=== PATIENT | female | born 1995 | race American Indian/Alaskan Native ===

== ENCOUNTER 2017-03-14 00:16 | Emergency (ER) | payer OTHER ==
[2017-03-14 02:33] LABS: Basophils % (Auto) 0.5 % (0.0-1.8); Eosinophils % (Auto) 5.4 % (0.0-4.3); Hematocrit 32.6 % (30.3-42.9); Hemoglobin 10.5 gm/dl (10.1-14.3); Mean Corpuscular HGB Conc 32 % (30-34); Mean Corpuscular Hemoglobin 27 pg (28-32); Mean Corpuscular Volume 85 fl (79-97); Platelet Count 351 K/mm3 (140-440); Red Blood Count 3.83 M/mm3 (3.65-5.03); Red Cell Distribution Width 17.9 % (13.2-15.2); White Blood Count 8.1 K/mm3 (4.5-11.0)
[2017-03-14 02:51] LABS: Alanine Aminotransferase 10 units/L (7-56); Albumin 3.9 g/dL (3.9-5); Albumin/Globulin Ratio 1.4 %; Alkaline Phosphatase 56 units/L (35-129); Anion Gap 16 mmol/L; BUN/Creatinine Ratio 22; Blood Urea Nitrogen 11 mg/dL (7-17); Calcium 9.2 mg/dL (8.4-10.2); Carbon Dioxide 22 mmol/L (22-30); Chloride 99.6 mmol/L (98-107); Glucose 80 mg/dL (65-100); Lipase 22 units/L (13-60); Sodium 134 mmol/L (137-145); Total Protein 6.6 g/dL (6.3-8.2)
[2017-03-14 08:58] LABS: Bilirubin,Urine NEG (Negative); Blood,Urine LG (Negative); Ketones,Urine 20 mg/dL (Negative); Leukocyte Esterase,Urine NEG (Negative); Mucus,Urine 3+ /HPF; Nitrite,Urine NEG (Negative); Protein,Urine <15 mg/dL mg/dL (Negative)
[2017-03-14 10:59] VITALS: BP 112/70
[2017-03-14] MEDS ORDERED: NORCO 7.5/325 PO ONE (11:33)
[2017-03-14] MEDS ORDERED: TORADOL IM ONE (11:33)
--- NOTE | 2017-03-14 12:18 | Emergency Department Report ---
HPI - General Chief Complaint: Abdominal Pain Time Seen by Provider: 03/14/17 10:04 - HPI HPI: The patient's 21-year-old female presents for evaluation of abdominal pain. The patient reports bilateral lower abdominal pain since last night, 7/10 in severity, crampy in quality, worsened with movement, and associated with vaginal bleeding. She states that she started her typical menstrual period last night. The patient denies fever, chills, night sweats, diarrhea, blood in the stool, dark tarry stool, dysuria, hematuria, flank pain, genital discharge, inability to pass flatus. ED Past Medical Hx - Past Medical History Previous Medical History?: No - Surgical History Past Surgical History?: No - Social History Smoking Status: Never Smoker Substance Use Type: None - Medications Home Medications: Home Medications Medication Instructions Recorded Confirmed Last Taken Type Acetaminophen/Codeine [Tylenol #3] 1 tab PO Q6H PRN #14 tab 03/14/17 Unknown Rx Ibuprofen [Motrin] 800 mg PO Q8HR PRN #15 tablet 03/14/17 Unknown Rx ED Review of Systems ROS: Stated complaint: SEVERE ABD CRAMPING Other details as noted in HPI Constitutional: denies: fever ENT: denies: throat or neck pain Respiratory: denies: cough, shortness of breath Cardiovascular: denies: chest pain Endocrine: denies unexplained weight loss or gain Gastrointestinal: reports abdominal pain, nausea Genitourinary: reports vaginial bleeding denies: dysuria Musculoskeletal: denies: leg swelling Skin: denies: rash Neurological: denies: headache Hematological/Lymphatic: denies: easy bleeding or easy bruising Psych: denies sadness or hopelessness Physical Exam - Physical Exam Vital Signs: Vital Signs 03/14/17 03/14/17 03/14/17 01:16 08:25 08:29 Temperature 98.7 F 98.4 F Pulse Rate 87 64 Respiratory 18 16 20 Rate Blood Pressure 109/64 Blood Pressure 111/75 [Left] O2 Sat by Pulse 98 98 100 Oximetry 03/14/17 10:58 Temperature 98.7 F Pulse Rate 84 Respiratory 16 Rate Blood Pressure Blood Pressure 112/70 [Left] O2 Sat by Pulse 100 Oximetry Physical Exam: General: well-nourished, well-developed, no acute distress Head: Normocephalic, atraumatic Eyes: normal sclera ENT: Mucous membranes are pink and moist Neck: trachea midline, neck supple, No neck stiffness, no cervical adenopathy Respiratory: Breath sounds equal bilaterally, no wheezing, rales, or rhonchi Cardio: S1 and S2 present, no murmurs, rubs, gallops, capillary refill is brisk Abdomen: Normoactive bowel sounds, soft abdomen, LLQ and suprapubic abd pain, no rigidity, no guarding or rebound tenderness Chest WALL/Back: No tenderness to palpation of the chest wall, no CVA tenderness with percussion Musc: No pitting edema Skin: No rash Neuro: no facial drooping, normal speech Psych: Normal affect ED Course Vital Signs 03/14/17 03/14/17 03/14/17 01:16 08:25 08:29 Temperature 98.7 F 98.4 F Pulse Rate 87 64 Respiratory 18 16 20 Rate Blood Pressure 109/64 Blood Pressure 111/75 [Left] O2 Sat by Pulse 98 98 100 Oximetry 03/14/17 10:58 Temperature 98.7 F Pulse Rate 84 Respiratory 16 Rate Blood Pressure Blood Pressure 112/70 [Left] O2 Sat by Pulse 100 Oximetry ED Medical Decision Making - Lab Data Result diagrams: 03/14/17 01:41 03/14/17 01:41 - Medical Decision Making The patient was seen and examined by myself. The patient is placed on a threat monitoring analyst and continuous pulse ox. On initial evaluation, the patient was found to be in no distress. Evaluation orders are placed. The patient is given by mouth pain medicine. Lab results were non-concerning including WBC, hemoglobin, hematocrit, electrolytes, renal function, LFTs, lipase, urinalysis, and negative test. The patient was reevaluated and reported that their symptoms were markedly improved. The patient is stable for discharge with outpatient follow-up. The patient is given follow-up and return instructions. The patient expressed understanding and agreed with the plan. The patient is discharged in stable condition. Critical care attestation.: If time is entered above; I have spent that time in minutes in the direct care of this critically ill patient, excluding procedure time. ED Disposition Clinical Impression: Abdominal pain, acute, periumbilical Disposition: - TO HOME OR SELFCARE Is pt being admited?: No Does the pt Need Aspirin: No Condition: Stable Instructions: Abdominal Pain (ED), Menstruation (ED), Dysmenorrhea (ED), Dysfunctional Uterine Bleeding (ED) Referrals: PRIMARY CAREMD [Primary Care Provider] - 3-5 Days JEFF TONG MD [Staff Physician] - 3-5 Days Time of Disposition: 12:15
== END 2017-03-14 12:28 | disposition home or self-care (01) ==
LOC: ED 00:16
DX: R10.30 Lower abdominal pain, unspecified (principal); N93.9 Abnormal uterine and vaginal bleeding, unspecified
CPT/HCPCS: 36415; 80053; 81001; 81025; 83690; 85025; 96372; 99284; J1885

== ENCOUNTER 2019-03-18 15:35 | Outpatient (CLI) | payer OTHER ==
[2019-03-18 16:26] VITALS: BP 105/66
[2019-03-18] MEDS ORDERED: LACTATED RINGERS 500 ML IV ONE (18:51)
[2019-03-18 19:09] LABS: Bilirubin,Urine NEG (Negative); Blood,Urine NEG (Negative); Color,Urine Amber (Yellow); Mucus,Urine 3+ /HPF
[2019-03-18 19:50] LABS: Basophils % (Auto) 0.5 % (0.0-1.8); Eosinophils # (Auto) 0.5 K/mm3 (0.0-0.4); Eosinophils % (Auto) 5.3 % (0.0-4.3); Hematocrit 32.2 % (30.3-42.9); Hemoglobin 10.8 gm/dl (10.1-14.3); Lymphocytes # (Auto) 1.8 K/mm3 (1.2-5.4); Lymphocytes % (Auto) 19.8 % (13.4-35.0); Mean Corpuscular HGB Conc 34 % (30-34); Mean Corpuscular Volume 94 fl (79-97); Monocytes # (Auto) 0.9 K/mm3 (0.0-0.8); Monocytes % (Auto) 9.4 % (0.0-7.3); Platelet Count 279 K/mm3 (140-440); Red Blood Count 3.42 M/mm3 (3.65-5.03); Red Cell Distribution Width 12.9 % (13.2-15.2)
== END 2019-03-18 20:09 | disposition home or self-care (01) ==
LOC: TRG 15:35
PROVIDERS: ATTEND Obstetrics & Gynecology
DX: O47.03 False labor before 37 completed weeks of gestation, third trimester (principal); Z3A.30 30 weeks gestation of pregnancy
CPT/HCPCS: 36415; 59025; 81001; 85025

== ENCOUNTER 2019-04-16 04:09 | Outpatient (CLI) | payer OTHER ==
[2019-04-16 04:19] VITALS: BP 105/72
[2019-04-16] MEDS ORDERED: LACTATED RINGERS 500 ML IV ONE (04:31)
[2019-04-16] MEDS ORDERED: LACTATED RINGERS 1,000 ML IV SCH (05:00)
[2019-04-16] MEDS ORDERED: TERBUTALINE 1 MG/1 ML INJ SUB-Q SCH (05:00)
--- NOTE | 2019-04-16 05:37 | Ultrasound Report ---
US OB limited, US OB BPP wo non-stress INDICATION / CLINICAL INFORMATION: labor. COMPARISON: None available. FINDINGS: Single, viable intrauterine , in cephalic presentation. heart rate 151. Amniotic fluid volume is normal, with a fluid index of 10 cm. Placenta is fundal and free of the cervical os. Biophysical profile breathing movements: 2 movements: 2 posture and tone: 2 Amniotic fluid volume: 2 Total biophysical profile score: 8/8 IMPRESSION: 1. Viable intrauterine , with normal amniotic fluid volume and normal biophysical profile. Signer Name: Kendell Lemus MD Signed: 04/16/2019 5:33 AM Workstation Name: [id number]
[2019-04-16 05:47] LABS: Bilirubin,Urine NEG (Negative); Blood,Urine MOD (Negative); Color,Urine Yellow (Yellow); Mucus,Urine 1+ /HPF; Protein,Urine <15 mg/dL mg/dL (Negative)
== END 2019-04-16 08:56 | disposition home or self-care (01) ==
LOC: TRG 04:09
PROVIDERS: ATTEND Obstetrics & Gynecology
DX: O26.853 Spotting complicating pregnancy, third trimester (principal); O26.893 Other specified pregnancy related conditions, third trimester; R25.2 Cramp and spasm; R10.9 Unspecified abdominal pain; O60.03 Preterm labor without delivery, third trimester; Z3A.35 35 weeks gestation of pregnancy
CPT/HCPCS: 59025; 76815; 76819; 81001; 96360; J7120

== ENCOUNTER 2019-05-07 01:40 | Inpatient (IN) | payer OTHER ==
[~2019-05-07 01:40] MED LIST: ceFAZolin/STERILE WATER 2 GM/20 ML SYRINGE IV ONE
[2019-05-07] MEDS ORDERED: FAMOTIDINE 20 MG/2 ML INJ IV ONE (03:25)
[2019-05-07] MEDS ORDERED: METOCLOPRAMIDE 10 MG/2 ML INJ IV ONE (03:25)
[2019-05-07] MEDS ORDERED: BICITRA ORAL LIQD 30ML PO ONE (03:25)
--- NOTE | 2019-05-07 03:27 | History and Physical Report ---
History of Present Illness Date of examination: 05/07/19 Chief complaint: my water broke History of present illness: Pt is a 23 year old female TYLER 05/21/19 at 38w0d who presents with consistent leakage of fluid since 1230 PM on 05/06/2019. She reports irregular contraction and denies vaginal bleeding. She has had care at [facility] since 8 wks with comanagement by [facility] secondary to h/o PPROM, labor and delivery at 35 wks, previous x 1, SMA carrier (father of baby not an SMA carrier), and limited anatomy scan with MFM follow up. She is GBS negative. Past History Past Medical History: no pertinent history Past Surgical History: section Family/Genetic History: cancer Social history: no significant social history - Obstetrical History Expected Date of Delivery: 05/21/19 Actual Gestation: 38 Week(s) 0 Day(s) : 3 Para: 1 Hx # Term Pregnancies: 0 Number of Pregnancies: 1 Spontaneous Abortions: 0 Induced : 1 Number of Living Children: 1 Medications and Allergies Allergies Allergy/AdvReac Type Severity Reaction Status Date / Time No Known Allergies Allergy Verified 03/18/19 16:27 Home Medications Medication Instructions Recorded Confirmed Last Taken Type Acetaminophen/Codeine [Tylenol #3] 1 tab PO Q6H PRN #14 tab 03/14/17 05/07/19 Unknown Rx Ibuprofen [Motrin] 800 mg PO Q8HR PRN #15 tablet 03/14/17 05/07/19 Unknown Rx Active Meds: Active Medications Citric Acid/Sodium Citrate (Bicitra) 30 ml PO ONCE ONE Stop: 05/07/19 03:26 Famotidine (Pepcid) 20 mg IV ONCE ONE Stop: 05/07/19 03:26 Oxytocin/Sodium Chloride (Pitocin/Ns 20 Unit/1000ml Drip) 20 units in 1,000 mls @ 0 mls/hr IV TITR MERLYN Lactated Ringer's (Lactated Ringers) 1,000 mls @ 2,250 mls/hr IV PREOP MERLYN Stop: 05/08/19 04:27 Metoclopramide HCl (Reglan) 10 mg IV ONCE ONE Stop: 05/07/19 03:26 Review of Systems All systems: negative - Physical Exam Breasts: Positive: deferred Abdomen: Positive: soft (gravid ) Uterus: Positive: enlarged (gravid ) Extremities: Positive: normal - Obstetrical FHR: auscultation normal Uterine Contraction Monitor Mode: External Cervical Dilatation: 1 (per RN) Uterine Contraction Pattern: Irregular Uterine Tone Measurement Phase: Resting Uterine Contraction Intensity: Moderate Results All other labs normal. Assessment and Plan A: IUP at 38w0d PROM Previous x 1 H/o PPROm and delivery at 35 wks SMA carrier GBS Negative P: Proceed with repeat section and other indicated procedures
[2019-05-07] MEDS ORDERED: LACTATED RINGERS 2,000 ML ONE (03:30)
[2019-05-07] MEDS ORDERED: ceFAZolin/Water 2 GM/20 ML 2 GM/20 ML SYRINGE IV NR (03:30)
[2019-05-07 03:38] LABS: Basophils # (Auto) 0.1 K/mm3 (0.0-0.1); Eosinophils # (Auto) 0.3 K/mm3 (0.0-0.4); Eosinophils % (Auto) 3.1 % (0.0-4.3); Hematocrit 33.6 % (30.3-42.9); Hemoglobin 11.3 gm/dl (10.1-14.3); Lymphocytes # (Auto) 2.4 K/mm3 (1.2-5.4); Lymphocytes % (Auto) 26.5 % (13.4-35.0); Mean Corpuscular HGB Conc 34 % (30-34); Mean Corpuscular Volume 89 fl (79-97); Monocytes % (Auto) 11.3 % (0.0-7.3); Platelet Count 240 K/mm3 (140-440); Red Blood Count 3.76 M/mm3 (3.65-5.03); Red Cell Distribution Width 13.8 % (13.2-15.2)
[2019-05-07] MEDS ORDERED: LACTATED RINGERS 1,000 ML IV SCH (04:00)
[2019-05-07] MEDS ORDERED: OXYTOCIN 20 UNIT/1000ML DRIP 20 UNITS/1,000 ML BAG IV SCH ×2 (04:00→10:30)
--- NOTE | 2019-05-07 04:05 | Anesthesia Consultation ---
Anesthesia Consult and Med Hx Date of service: 05/07/19 - Airway Anesthetic Teeth Evaluation: Good ROM Head & Neck: Adequate Mental/Hyoid Distance: Adequate Mallampati Class: Class II Intubation Access Assessment: Probably Good - Pulmonary Exam CTA: Yes - Cardiac Exam Cardiac Exam: RRR - Pre-Operative Health Status ASA Pre-Surgery Classification: ASA2 Proposed Anesthetic Plan: Spinal - Pulmonary Hx Asthma: No - Cardiovascular System Hx Hypertension: No - Central Nervous System Hx Seizures: No Hx Psychiatric Problems: No - Endocrine Hx Renal Disease: No Hx Hypothyroidism: No Hx Hyperthyroidism: No - Hematic Hx Anemia: No Hx Sickle Cell Disease: No - Other Systems Hx Alcohol Use: No
--- NOTE | 2019-05-07 04:05 | Anesthesia Day of Surgery ---
Anesthesia Day of Surgery - Day of Surgery Patient Examined: Yes Patient H&P Reviewed: Yes Patient is NPO: Yes
[2019-05-07] MEDS ORDERED: SODIUM CHLORIDE 0.9% IRR 1,500 ML BOTTLE IR ONE (04:11)
[2019-05-07] MEDS ORDERED: WATER FOR IRRIG STERILE 1,500 ML BOTTLE IR ONE (04:11)
[2019-05-07] MEDS ORDERED: DEXMEDETOMIDINE 200 MCG/2 ML VIAL IV ONE (05:30)
[2019-05-07] MEDS ORDERED: OXYTOCIN 10 UNIT/1 ML INJ ONE (05:30)
[2019-05-07] MEDS ORDERED: BUPIVACAINE/PF (0.5%) 5 MG/1 ML 30 ML VIAL INFILTRATI ONE (05:30)
[2019-05-07] MEDS ORDERED: KETOROLAC 30 MG/1 ML INJ ONE (05:30)
[2019-05-07] MEDS ORDERED: ONDANSETRON 4 MG/2 ML INJ ONE (05:30)
--- NOTE | 2019-05-07 05:34 | Procedure Note ---
OB Delivery Note - Delivery Date of Delivery: 05/07/19 Surgeon: GILDA AGUILAR Estimated blood loss: 500cc - Section Preop diagnosis: repeat , other (PROM, Previous x 1) Postop diagnosis: same section procedure: section, repeat low transverse Disposition: PACU Complications: none Narrative: Please see operative report - Infant A at 1 minute: 8 at 5 minutes: 9 Infant Gender: Female (2477g (5lb 7.3 oz) @ 0449 am)
--- NOTE | 2019-05-07 05:34 | Operative Report ---
Operative Report Operative Report: Date of procedure: May 07, 2019 Preoperative diagnosis: 1) IUP at 38w0d 2) SROM 3) Previous x 1 Postoperative diagnosis: Same Procedure: 1) Repeat low transverse section Surgeon: Hali Abad M.D. Anesthesia: Regional Findings: 1) Viable female , Apgars 8 and 9, weight 2477g, (5 lb 7.3 oz) in cephalic presentation. Nuchal cord x 1 2) Normal-appearing uterus ovaries and tubes Estimated blood loss: 500 mL IV fluids:1500 mL Urine output: 200 mL, clear at the end of the procedure Drains: Burns to gravity Specimens: None Complications: Counts correct x 3 Disposition: Stable to PACU Indication for procedure: Pt is a 23 year old -[place]ish female at 38w0d and a history of one prior who presents with spontaneous rupture of membranes. The decision was made to proceed to delivery. Operation in detail: After the risks, benefits, alternatives and complications were explained to the patient she gave informed consent for the procedure. She was subsequently taken to the operating room where regional anesthesia was noted to be adequate. She was subsequently placed in the dorsal supine position with leftward tilt and prepped and draped in a normal sterile fashion. heart tones were noted prior to incision. A timeout was performed. A Pfannenstiel skin incision was made with the knife and carried down to the layer of the fascia with the Bovie. The fascia was incised in the midline and the fascial incision was extended bilaterally with the Bovie. The fascial incision was then stretched. The rectus muscles were then in the midline. The peritoneum was then entered sharply between two Maggie clamps. The peritoneal incision was extended with good visualization of the bladder. The peritoneal incision was then stretched. An Stu retractor was placed. The bladder blade was placed. The vesicouterine peritoneum was grasped with smooth pickups and incised with Metzenbaum scissors. Metzenbaum scissors were used to extend the incision bilaterally. The bladder flap was then created digitally and the bladder blade was replaced. A transverse incision was made in the lower uterine segment with a knife and extended bilaterally with the bandage scissors. The head was delivered without difficulty, followed by delivery of the shoulders and body. was bulb suctioned at delivery. The cord was clamped and cut and the was handed to NICU staff in attendance. The placenta was then delivered manually. The uterus was then exteriorized and cleared of all clots and debris. The hysterotomy was then reapproximated with 0 Vicryl in a running locked fashion. A second layer of the same suture was used in an imbricating fashion. The hysterotomy was inspected and hemostasis was noted. The uterus was placed back into the peritoneal cavity. The gutters were irrigated and cleared of all clots and debris. The hysterotomy was again inspected and noted to be hemostatic. Surgicel was placed over the hysterotomy. The peritoneum was reapproximated with 2-0 Vicryl in a running fashion incorporating the rectus muscles. The fascia was reapproximated with 0-Vicryl in a running fashion. The subcutaneous tissue was reapproximated with 3-0 Vicryl in a running fashion. The skin was reapprox imated with 4-0 Vicryl in a subcuticular fashion. The incision was then covered with steristrips and a pressure dressing. The procedure was then ended. The patient tolerated the procedure well and was taken to the PACU in stable condition. All instrument, lap, and needle counts were correct 3.
[2019-05-07] MEDS ORDERED: KETOROLAC 10 MG TAB ONE (09:24)
[2019-05-07] MEDS ORDERED: MORPHINE 4 MG/1 ML INJ IV PRN (10:30)
[2019-05-07] MEDS ORDERED: SIMETHICONE 80 MG CHEW TAB PO PRN (10:30)
[2019-05-07] MEDS ORDERED: NALOXONE 0.4 MG/1 ML INJ IV PRN (10:30)
[2019-05-07] MEDS ORDERED: D5W/LACTATED RINGERS 1,000 ML IV SCH (10:30)
[2019-05-07] MEDS ORDERED: ONDANSETRON 4 MG/2 ML INJ IV PRN (10:30)
[2019-05-07] MEDS ORDERED: KETOROLAC 30 MG/1 ML INJ IV PRN (10:30)
[2019-05-07] MEDS ORDERED: WITCH HAZEL/ GLYCERIN PAD TP PRN (10:30)
[2019-05-07] MEDS ORDERED: MORPHINE 2 MG/1 ML INJ IV PRN (10:30)
[2019-05-07] MEDS ORDERED: LANOLIN/ZINC/DIMETHICONE (LANSINOH) 7 GM TP PRN (10:30)
[2019-05-07] MEDS ORDERED: IBUPROFEN 800 MG TAB PO PRN (10:30)
[2019-05-07] MEDS: ceFAZolin/NS 1 GM/50 ML 1 GM/50 ML BAG IV SCH ×2 (15:17→23:03)
[2019-05-07] MEDS: FERROUS SULFATE 325 MG TAB PO SCH (15:21)
[2019-05-07] MEDS: oxyCODONE /ACETAMINOPHEN 5-325MG TAB PO PRN ×3 (18:47→23:14)
[2019-05-07 20:22] LABS: Hematocrit 27.6 % (30.3-42.9); Hemoglobin 9.4 gm/dl (10.1-14.3)
[2019-05-07] MEDS ORDERED: MAGNESIUM HYDROXIDE (MOM) ORAL LIQD UDC PO PRN (22:00)
[2019-05-08] MEDS: oxyCODONE /ACETAMINOPHEN 5-325MG TAB PO PRN ×3 (04:25→21:04)
[2019-05-08] MEDS ORDERED: TETANUS,DIPH,PERTUSS(ACELL) VACCINE 0.5 ML SYRINGE IM ONE (06:00)
[2019-05-08] MEDS ORDERED: MEASLES, MUMPS & RUBELLA 12,500 UNIT/0.5 ML VACCINE SUB-Q ONE (11:00)
--- NOTE | 2019-05-08 11:44 | Progress Note ---
Assessment and Plan - Patient Problems (1) delivery delivered Current Visit: Yes Status: Acute Plan to address problem: patient doing well discharge home tomorrow Subjective - Subjective Date of service: 05/08/19 Interval history: Patient doing better. Patient has ambulated and voided. Tolerated regular diet Patient reports: appetite normal, voiding normally, pain well controlled : doing well Objective - Vital Signs Latest vital signs: Vital Signs Temp Pulse Resp BP BP Pulse Ox 05/08/19 08:25 20 05/08/19 07:32 98.5 F 85 20 111/76 98 05/08/19 04:29 98.2 F 93 H 20 117/84 100 05/08/19 04:25 18 05/08/19 00:18 98.2 F 86 20 113/77 98 05/07/19 23:14 18 05/07/19 20:09 98.6 F 91 H 20 107/73 97 05/07/19 16:35 98.3 F 73 20 101/64 05/07/19 12:29 98.1 F 67 18 99/56 Intake and Output 05/07/19 05/08/19 05/08/19 22:59 06:59 14:59 Intake Total 419 120 Output Total 1400 400 Balance -981 -280 Intake: IV 50 ANCEF/NS 1 GM/50 ML 1 gm 50 In 50 ml @ 100 mls/hr IV Q8H [facility] Rx#:[id number] Oral 369 120 Output: Urine 1400 400 Indwelling Catheter 900 Void 500 400 Other: Total, Intake Amount 240 120 Total, Output Amount 400 400 # Voids Void 1 1 - Exam Incision: Present: dressed - Labs Labs: Abnormal lab results 05/07/19 Range/Units 20:12 Hgb 9.4 L (10.1-14.3) gm/dl Hct 27.6 L D (30.3-42.9) %
[2019-05-08] MEDS: FERROUS SULFATE 325 MG TAB PO SCH (12:32)
--- NOTE | 2019-05-08 14:57 | Post Anesthesia Evaluation ---
- Post Anesthesia Evaluation Patient Participated: Yes Airway Patent: Yes Stable Respiratory Function: Yes Nausea/Vomiting: No Temp > 96.8F: Yes Pain Manageable: Yes Adequeate Hydration: Yes Anesthesia Complications: No Block Receding Appropriately: Yes Patient on Ventilator: No
[2019-05-09] MEDS: oxyCODONE /ACETAMINOPHEN 5-325MG TAB PO PRN ×2 (03:41→09:11)
[2019-05-09] MEDS: FERROUS SULFATE 325 MG TAB PO SCH (09:11)
--- NOTE | 2019-05-09 12:14 | Progress Note ---
Assessment and Plan - Patient Problems (1) delivery delivered Current Visit: Yes Status: Acute Plan to address problem: patient doing well Subjective - Subjective Date of service: 05/09/19 Interval history: Patient doing better. No current complaints Patient reports: appetite normal, voiding normally, pain well controlled [place]: doing well Objective - Vital Signs Latest vital signs: Vital Signs Temp Pulse Resp BP BP Pulse Ox 05/09/19 08:15 98.2 F 78 20 107/67 05/09/19 03:41 05/09/19 00:10 98.2 F 89 20 114/75 98 05/08/19 21:04 20 05/08/19 16:33 97.9 F 84 20 109/79 96 05/08/19 12:32 20 Intake and Output 05/08/19 05/09/19 05/09/19 22:59 06:59 14:59 Intake Total 240 240 120 Balance 240 240 120 Intake: Oral 240 240 120 Other: Total, Intake Amount 240 240 120 # Voids Void 1 1 1 - Exam Abdomen: Present: normal appearance, soft
--- NOTE | 2019-05-09 12:16 | Discharge Summary ---
Providers - Providers Date of Admission: 05/07/19 03:49 Date of discharge: 05/09/19 Attending physician: EMI JONES MD Primary care physician: EMI JONES MD Hospitalization Reason for admission: section, rupture of membranes Delivery: Procedure: section, repeat low transverse Discharge diagnosis: IUP at term delivered Hospital course: Patient admitted with SROM. underwent a repeat . postop uncomplicated Condition at discharge: Good Disposition: DC-01 TO HOME OR SELFCARE - Discharge Diagnoses (1) delivery delivered Status: Acute Plan - Discharge Medications Prescriptions: Ibuprofen [Motrin] 800 mg PO Q8HR PRN #60 tablet PRN Reason: Pain, Mild (1-3) oxyCODONE /ACETAMINOPHEN [Percocet 5/325] 1 tab PO Q6HR PRN #30 tablet PRN Reason: Pain - Provider Discharge Summary Activity: no sex for 6 weeks, no heavy lifting 4 weeks, no strenuous exercise Diet: routine Instructions: routine Additional instructions: [] Smoking cessation referral if applicable(refer to patient education folder for contact #) [] Refer to [facility] Booklet Call your doctor immediately for: * Fever > 100.5 * Heavy vaginal bleeding ( >1 pad per hour) * Severe persistent headache * Shortness of breath * Reddened, hot, painful area to leg or breast * Drainage or odor from incision. * Keep incision clean and dry at all times and follow doctor's instructions regarding bathing/showering schedule followup in 2 weeks - Follow up plan Forms: [facility] Discharge Summary
[2019-05-09 16:08] VITALS: BP 112/67
== END 2019-05-09 16:42 | disposition home or self-care (01) | DRG 766 ==
LOC: TRG 01:40 → LD 03:49 → OB 07:55
PROVIDERS: ADMIT Obstetrics & Gynecology; ATTEND Obstetrics & Gynecology
PROC: 10D00Z1 Extraction of Products of Conception, Low, Open Approach (ICD-10-PCS; principal; 2019-05-07)
PROC: 3E0234Z Introduction of Serum, Toxoid and Vaccine into Muscle, Percutaneous Approach (ICD-10-PCS; 2019-05-08)
PROC: 3E0134Z Introduction of Serum, Toxoid and Vaccine into Subcutaneous Tissue, Percutaneous Approach (ICD-10-PCS; 2019-05-08)
DX: O34.211 Maternal care for low transverse scar from previous cesarean delivery (principal); Z3A.38 38 weeks gestation of pregnancy; Z37.0 Single live birth; O42.92 Full-term premature rupture of membranes, unspecified as to length of time between rupture and onset of labor; O69.81X0 Labor and delivery complicated by cord around neck, without compression, not applicable or unspecified; Z23 Encounter for immunization; Z14.8 Genetic carrier of other disease
CPT/HCPCS: 36415; 85014; 85018; 85025; 86592; 86850; 86900; 86901; G0378; J0690; J1885; J2405; J2590; J2765; J3490; J7120; J7121

== ENCOUNTER 2020-10-06 09:38 | Outpatient (CLI) | payer OTHER ==
[2020-10-06 10:47] VITALS: BP 101/60
[2020-10-06] MEDS ORDERED: LACTATED RINGERS 1,000 ML ONE (11:28)
[2020-10-06] MEDS ORDERED: LACTATED RINGERS 1,000 ML IV ONE (11:47)
== END 2020-10-06 13:29 | disposition home or self-care (01) ==
LOC: TRG 09:38 → APU 09:41 → TRG 13:29
PROVIDERS: ATTEND Obstetrics & Gynecology
DX: O26.893 Other specified pregnancy related conditions, third trimester (principal); R10.30 Lower abdominal pain, unspecified; R10.2 Pelvic and perineal pain; O62.9 Abnormality of forces of labor, unspecified; Z3A.35 35 weeks gestation of pregnancy
CPT/HCPCS: 59025; J7120; 96360

== ENCOUNTER 2020-10-18 00:49 | Outpatient (CLI) | payer OTHER ==
[2020-10-18 01:31] VITALS: BP 111/76
[2020-10-18] MEDS ORDERED: LACTATED RINGERS 1,000 ML ONE (03:14)
[2020-10-18] MEDS ORDERED: LACTATED RINGERS 1,000 ML IV SCH (03:45)
== END 2020-10-18 05:04 | disposition home or self-care (01) ==
LOC: TRG 00:49 → APU 00:56 → TRG 05:04
PROVIDERS: ATTEND Obstetrics & Gynecology
DX: O26.893 Other specified pregnancy related conditions, third trimester (principal); R11.10 Vomiting, unspecified; Z3A.37 37 weeks gestation of pregnancy
CPT/HCPCS: 59025; J7120

== ENCOUNTER 2020-10-24 01:43 | Inpatient (IN) | payer OTHER ==
[2020-10-24] MEDS ORDERED: FAMOTIDINE 20 MG/2 ML INJ IV ONE (03:03)
[2020-10-24] MEDS ORDERED: METOCLOPRAMIDE 10 MG/2 ML INJ IV ONE (03:03)
[2020-10-24] MEDS ORDERED: LACTATED RINGERS 1,000 ML ONE (03:03)
[2020-10-24] MEDS ORDERED: BICITRA ORAL LIQD 30ML PO ONE (03:03)
--- NOTE | 2020-10-24 03:05 | History and Physical Report ---
History of Present Illness Date of examination: 10/24/20 Chief complaint: my water broke History of present illness: Pt is a 24 year old -[place] female TYLER 11/04/20 at 38w3d who presents with leakage of fluid since about 00:30 am this morning. She reports irregular contractions, and denies vaginal bleeding. She has had care at [facility] since 18 wks complicated by late entry to care, previous section x 2, GERD, SMA carrier, h/o PPROM and delivery. She is GBS negative. She does not desire future fertility and her consent is signed and on the chart. Past History Past Medical History: GERD Past Surgical History: section ( x 2 ) Family/Genetic History: cancer Social history: no significant social history - Obstetrical History Expected Date of Delivery: 11/04/20 Actual Gestation: 38 Week(s) 3 Day(s) : 4 Para: 2 Hx # Term Pregnancies: 1 Number of Pregnancies: 1 Spontaneous Abortions: 0 Induced : 1 Number of Living Children: 2 Medications and Allergies Allergies Allergy/AdvReac Type Severity Reaction Status Date / Time No Known Allergies Allergy Verified 03/18/19 16:27 Home Medications Medication Instructions Recorded Confirmed Last Taken Type No Known Home Medications [No 10/06/20 10/06/20 Unknown History Reported Home Medications] Active Meds: Active Medications Citric Acid/Sodium Citrate (Bicitra Oral Liqd 30ml) 30 ml PO ONCE ONE Stop: 10/24/20 03:04 Famotidine (Famotidine 20 Mg/2 Ml Inj) 20 mg IV ONCE ONE Stop: 10/24/20 03:04 Lactated Ringer's (Lactated Ringers) 1,000 mls @ 2,250 mls/hr IV PREOP MERLYN Stop: 10/25/20 03:42 Oxytocin/Sodium Chloride (Pitocin/Ns 30 Unit/500ml) 30 units in 500 mls @ 0 mls/hr IV TITR MERLYN; Protocol Cefazolin Sodium (Ancef/Sterile Water 2 Gm/20 Ml) 2 gm in 20 mls @ 80 mls/hr IV PREOP NR; Protocol Metoclopramide HCl (Metoclopramide 10 Mg/2 Ml Inj) 10 mg IV ONCE ONE Stop: 10/24/20 03:04 Review of Systems All systems: negative - Vital Signs Vital signs: Vital Signs Pulse BP 70 108/74 10/24/20 01:57 10/24/20 01:57 Temp Pulse Resp BP Pulse Ox 70 108/74 10/24/20 01:57 10/24/20 01:57 - Physical Exam Breasts: Positive: deferred Abdomen: Positive: soft (gravid ) Uterus: Positive: enlarged (gravid ) Extremities: Positive: normal - Obstetrical FHR: auscultation normal Uterine Contraction Monitor Mode: External Cervical Dilatation: 2 Uterine Contraction Pattern: Irregular Uterine Tone Measurement Phase: Resting Uterine Contraction Intensity: Moderate Results Result Diagrams: 10/24/20 02:35 All other labs normal. Assessment and Plan A: IUP at 38w3d SROM Previous x 2 GERD Undesired Fertility with consent signed and on the chart P: Admit to labor and delivery Proceed with repeat section, bilateral tubal ligation and other indicated procedures
[2020-10-24] MEDS ORDERED: LACTATED RINGERS 1,000 ML IV SCH (03:15)
[2020-10-24] MEDS ORDERED: OXYTOCIN DRIP 30 UNITS/500 ML BAG IV SCH ×2 (04:00→11:00)
[2020-10-24] MEDS ORDERED: ceFAZolin/Water 2 GM/20 ML 2 GM/20 ML SYRINGE IV NR (04:00)
--- NOTE | 2020-10-24 04:02 | Anesthesia Consultation ---
Anesthesia Consult and Med Hx Date of service: 10/24/20 - Airway Anesthetic Teeth Evaluation: Good ROM Head & Neck: Adequate Mental/Hyoid Distance: Adequate Mallampati Class: Class II Intubation Access Assessment: Probably Good - Pulmonary Exam CTA: Yes - Cardiac Exam Cardiac Exam: RRR - Pre-Operative Health Status ASA Pre-Surgery Classification: ASA2 Proposed Anesthetic Plan: Spinal - Pulmonary Hx Asthma: No COPD: No Hx Pneumonia: No - Cardiovascular System Hx Hypertension: No - Central Nervous System Hx Seizures: No Hx Psychiatric Problems: No - Endocrine Hx Renal Disease: No Hx End Stage Renal Disease: No Hx Hypothyroidism: No Hx Hyperthyroidism: No - Hematic Hx Anemia: No Hx Sickle Cell Disease: No - Other Systems Hx Alcohol Use: No
--- NOTE | 2020-10-24 04:02 | Anesthesia Day of Surgery ---
Anesthesia Day of Surgery - Day of Surgery Patient Examined: Yes Patient H&P Reviewed: Yes Patient is NPO: Yes
[2020-10-24 04:16] LABS: Hematocrit 30.7 % (30.3-42.9); Hemoglobin 10.1 gm/dl (10.1-14.3); Mean Corpuscular HGB Conc 33 % (30-34); Mean Corpuscular Volume 87 fl (79-97); Platelet Count 194 K/mm3 (140-440); Red Blood Count 3.53 M/mm3 (3.65-5.03); Red Cell Distribution Width 14.7 % (13.2-15.2)
[2020-10-24] MEDS ORDERED: BUPIVACAINE/PF (0.5%) 5 MG/1 ML 30 ML VIAL INFILTRATI ONE (04:37)
[2020-10-24] MEDS ORDERED: KETOROLAC 30 MG/1 ML INJ ONE (04:37)
[2020-10-24] MEDS ORDERED: ONDANSETRON 4 MG/2 ML INJ ONE (04:37)
[2020-10-24] MEDS ORDERED: dexAMETHasone 20 MG/5 ML VIAL ONE (04:37)
[2020-10-24] MEDS ORDERED: ceFAZolin/STERILE WATER 2 GM/20 ML SYRINGE IV ONE (04:45)
[2020-10-24] MEDS ORDERED: METHYLERGONOVINE MALEATE 0.2 MG/ML VIAL IM ONE ×2 (05:36→05:45)
[2020-10-24] MEDS ORDERED: miSOPROStol 100 MCG TAB ONE (05:49)
--- NOTE | 2020-10-24 06:27 | Procedure Note ---
OB Delivery Note - Delivery Date of Delivery: 10/24/20 Surgeon: GILDA AGUILAR Estimated blood loss: other (awaiting QBL) - Section Preop diagnosis: repeat , desires sterilization Postop diagnosis: same section procedure: section, repeat low transverse Disposition: PACU Complications: uterine atony Narrative: Please see operative report - Infant A at 1 minute: 8 at 5 minutes: 9 Gender: Male (2630g (5lb 12oz) @ 0528 am)
--- NOTE | 2020-10-24 07:01 | Operative Report ---
Operative Report Operative Report: Date of procedure: October 24, 2020 Preoperative diagnosis: 1) IUP at 38w3d 2) SROM 3) Previous x 2 4) U ndesired Fertility Postoperative diagnosis: Same 5) Uterine Atony Procedure: 1) Repeat low transverse section 2) Bilateral tubal ligation via modified Rumsey method Surgeon: Hali Abad M.D. Anesthesia: Regional Findings: 1) Viable male , Apgars 8 and 9, weight 2630, ([5lb 12 oz) in cephalic presentation. Occiput Posterior 2) Normal appearing ovaries and tubes Estimated blood loss: 556 mL by QBL Urine: clear at the end of the procedure Drains: Burns to gravity Specimens: Tubal segments to pathology Complications: Counts correct x 3 Disposition: Stable to PACU Indication for procedure: Pt is a 24 year old at 38w3d who presents with a history of two prior cesareans and undesired fertility presents with rupture of membranes. The decision was made to proceed with delivery. Operation in Detail: After the risks, benefits, alternatives and complications were explained to the patient she gave informed consent for the procedure. She was subsequently taken to the operating room where regional anesthesia was noted to be adequate. She was then placed in the dorsal supine position with leftward tilt and prepped and draped in a normal sterile fashion. heart tones were noted prior to incision. A timeout was performed. A Pfannenstiel skin incision was made with the knife and carried down to the layer of the fascia with the Bovie. The fascia was incised in the midline and the fascial incision was extended bilaterally with the Bovie. The fascial incision was then stretched. The rectus muscles were then in the midline and partially transected for adequate visualization. The peritoneum was then entered sharply between two Maggie clamps. The peritoneal incision was extended with good visualization of the bladder. The peritoneal incision was then stretched. An Stu retractor was placed. The bladder blade was placed. The vesicouterine peritoneum was grasped with smooth pick ups and incised with Metzenbaum scissos. A bladder flap was created and the bladder blade was replaced. A transverse incision was made with a knife in the lower uterine segment. The hysterotomy was stretched. The head was delivered without difficulty followed by delivery of the shoulders and body. was bulb suctioned at delivery. The cord was clamped and cut and the was handed to NICU staff in attendance. Cord blood was collected. The placenta was then delivered manually. The uterus was exteriorized and cleared of all clots and debris. Uterine atony was noted, and Methergine 0.2 mg IM was administered. Uterine tone was improved. The hysterotomy was then reapproximated with 0 Monocryl in a running locked fashion. A second suture was used in an imbricated fashion. The hysterotomy was inspected and hemostasis was noted. Attention was then turned to the tubal ligation. The left tube was identified, grasped with a shwetha and followed out to the fimbriae. The tube was suture ligated via a modified Rumsey method using 0 chromic suture. The intervening tubal segment was sent to pathology. The right tube was then identified, followed out to the fimbriae and suture ligated via a modified Rumsey method using 0 chromic suture. Hemostasis was noted. Surgicel was placed over the tubal ostia bilaterally. The gutters were irrigated and cleared of all clots and debris. The hysterotomy was again inspected and noted to be hemostatic. Surgicel was placed over the hysterotomy. The uterus was returned to the peritoneal cavity. The Stu retractor was removed. The peritoneum was reapproximated with 0 Monocryl in a running fashion incorporating the rectus muscles. Surgicel was placed over the rectus muscles. The fascia was reapproximated with 0-Vicryl in a running fashion. The subcutaneous tissue was reapproximated with 3-0 Vicryl in a running fashion. The skin was reapproximated with 3-0 Monocryl in a subcuticular fashion. The incision was then covered with a pressure dressing. The procedure was then ended. The patient tolerated the procedure well and was taken to the PACU in stable condition. All instrument, lap, and needle counts were correct 3.
--- NOTE | 2020-10-24 07:21 | Progress Note ---
Spinal Anesthesia Block - Spinal Anesthesia Block Start Time: 04:47 Stop Time: 04:49 Performed by:: DAPHNIE WILLIAMSON Procedure: Sitting, sterile chlorahexadine 0.5% prep/drape, 1% lidocaine skin local, 25G spinal needle + introducer at L3-4, + CSF, - Heme, [1.9 ml 0.5% bupivacaine + 10 mcg dexmedetomidine] injected, drape removed, patient positioned supine with left uterine displacement, and spinal level verified to be adequate prior to surgery.
--- NOTE | 2020-10-24 07:22 | Progress Note ---
Labor Epidural - Labor Epidural Start Time: 06:40 Stop Time: 06:45 Performed by:: DAPHNIE WILLIAMSON Procedure: U/S guided bilateral tap block performed for post-operative pain requested by Dr. Abad. H&P & labs reviewed. Procedure explained, questions answered, consent obtained. Patient in the supine position with ekg, blood pressure cuff and pulse ox on and working in PACU. Timeout performed immediately before start of procedure. Probe placed in the mid-axillary line and the external oblique, internal oblique, and transverse abdominus muscles identified. Skin was cleansed with chlorahexadine 0.5% and allowed to dry. A 4" 20 G Jimenez echogenic needle was advanced in plane until the tip was in the fascial plane between the internal oblique and the transverse abdominus. After negative aspiration 35 ml/side of [30 ml 0.5% Bupivacaine], [10 mg dexamethasone], and [40 ml sterile saline] was injected in 5 ml increments with negative aspiration in between. Patient tolerated procedure well.
[2020-10-24] MEDS ORDERED: WITCH HAZEL/ GLYCERIN PAD TP PRN (10:00)
[2020-10-24] MEDS ORDERED: NALOXONE 0.4 MG/1 ML INJ IV PRN (10:00)
[2020-10-24] MEDS ORDERED: ACETAMINOPHEN 325 MG TAB PO PRN (10:00)
[2020-10-24] MEDS ORDERED: LANOLIN/ZINC/DIMETHICONE (LANSINOH) 7 GM TP PRN (10:00)
[2020-10-24] MEDS ORDERED: MORPHINE 2 MG/1 ML INJ IV PRN (10:00)
[2020-10-24] MEDS ORDERED: D5W/LACTATED RINGERS 1,000 ML IV SCH (10:00)
[2020-10-24] MEDS ORDERED: ONDANSETRON 4 MG/2 ML INJ IV PRN (10:00)
[2020-10-24] MEDS ORDERED: MORPHINE 4 MG/1 ML INJ IV PRN (10:00)
[2020-10-24] MEDS: FERROUS SULFATE 325 MG TAB PO SCH (10:33)
[2020-10-24] MEDS: KETOROLAC 30 MG/1 ML INJ IV PRN ×2 (10:33→18:28)
[2020-10-24] MEDS ORDERED: SIMETHICONE 80 MG CHEW TAB PO PRN (11:00)
[2020-10-24] MEDS: oxyCODONE /ACETAMINOPHEN 5-325MG TAB PO PRN ×2 (14:08→21:15)
[2020-10-24] MEDS: ceFAZolin/NS 1 GM/50 ML 1 GM/50 ML BAG IV SCH ×2 (14:08→22:10)
[2020-10-24 18:52] LABS: Hematocrit 35.3 % (30.3-42.9); Hemoglobin 11.2 gm/dl (10.1-14.3)
[2020-10-25] MEDS: IBUPROFEN 800 MG TAB PO PRN ×2 (06:21→13:39)
[2020-10-25] MEDS ORDERED: TETANUS,DIPH,PERTUSS(ACELL) VACCINE 0.5 ML SYRINGE IM ONE (07:07)
[2020-10-25] MEDS ORDERED: MEASLES, MUMPS & RUBELLA 12,500 UNIT/0.5 ML VACCINE SUB-Q ONE (07:08)
--- NOTE | 2020-10-25 08:38 | Progress Note ---
Assessment and Plan - Patient Problems (1) delivery delivered Current Visit: No Status: Acute Plan to address problem: Continue routine PP orders Keep dressing clean and dry, remove on POD#2 Anticipate d/c home in 24-48 hrs if stable Subjective - Subjective Date of service: 10/25/20 Principal diagnosis: S/P repeat C/S; POD#1 Interval history: Pt is a 24 year old -[place] female TYLER [birth year] at 38w3d who presents with leakage of fluid since about 00:30 am this morning. She reports irregular contractions, and denies vaginal bleeding. She has had care at [facility] since 18 wks complicated by late entry to care, previous section x 2, GERD, SMA carrier, h/o PPROM and delivery. She is GBS negative. She does not desire future fertility and her consent is signed and on the chart. Patient reports: appetite normal, voiding normally, pain well controlled (with medications), flatus, ambulating normally, no bowel movement : doing well, bottle feeding Objective - Vital Signs Latest vital signs: Vital Signs Temp Pulse Resp BP Pulse Ox 10/25/20 06:21 18 10/25/20 05:02 98.4 F 55 L 18 126/70 100 10/25/20 01:09 98.2 F 48 L 18 122/79 100 10/24/20 21:25 97.6 F 53 L 20 123/81 100 10/24/20 21:15 18 10/24/20 15:12 98.0 F 62 18 127/87 97 10/24/20 13:02 59 L 120/76 100 Intake and Output 10/24/20 10/25/20 10/25/20 23:59 07:59 15:59 Output Total 400 300 Balance -400 -300 Output: Urine 400 300 Void 400 300 Other: Total, Output Amount 400 300 # Voids Void 1 - Exam Breasts: Present: normal Cardiovascular: Present: Regular rate Lungs: Present: Normal air movement Abdomen: Present: soft, tenderness Uterus: Present: firm, fundal height below umbilicus (U-2) Extremities: Present: normal Deep Tendon Reflex Grade: Normal +2 Incision: Present: dressed (no shadow drainage or bleeding noted)
[2020-10-25] MEDS: FERROUS SULFATE 325 MG TAB PO SCH (10:14)
--- NOTE | 2020-10-25 21:35 | Post Anesthesia Evaluation ---
- Post Anesthesia Evaluation Patient Participated: Yes Airway Patent: Yes Stable Respiratory Function: Yes Nausea/Vomiting: No Temp > 96.8F: Yes Pain Manageable: Yes Adequeate Hydration: Yes Anesthesia Complications: No Block Receding Appropriately: Yes
[2020-10-25] MEDS: oxyCODONE /ACETAMINOPHEN 5-325MG TAB PO PRN (22:39)
--- NOTE | 2020-10-26 08:24 | Discharge Summary ---
Providers - Providers Date of Admission: 10/24/20 05:48 Date of discharge: 10/26/20 Attending physician: GILDA AGUILAR 10/24/20 09:36 Consult to [facility] [CONS] Routine Reason For Exam: Primary care physician: GILDA AGUILAR Hospitalization Reason for admission: rupture of membranes Delivery: Procedure: repeat low transverse Episiotomy: none Laceration: none Incision: dry, intact (no drainage or bleeding noted) Other procedures: none complications: none Discharge diagnosis: IUP at term delivered [place] baby: male Hospital course: Pt is a 24 year old -[place] female TYLER [birth year] at 38w3d who presents with leakage of fluid since about 00:30 am this morning. She reports irregular contractions, and denies vaginal bleeding. She has had care at [facility] since 18 wks complicated by late entry to care, previous section x 2, GERD, SMA carrier, h/o PPROM and delivery. She is GBS negative. She does not desire future fertility and her consent is signed and on the chart. Condition at discharge: Stable Disposition: [id number] TO HOME OR SELFCARE - Discharge Diagnoses (1) delivery delivered Status: Acute (2) Status post tubal ligation at time of delivery, current hospitalization Status: Acute Plan - Discharge Medications Prescriptions: Ibuprofen [Motrin 800 MG tab] 800 mg PO Q8HR PRN 7 Days #21 tablet PRN Reason: Pain, Moderate (4-6) - Provider Discharge Summary Activity: routine, no sex for 6 weeks, no heavy lifting 4 weeks, no strenuous exercise Diet: other (Iron rich diet) Instructions: routine Additional instructions: [] Smoking cessation referral if applicable(refer to patient education folder for contact #) [] Refer to [facility] Booklet Call your doctor immediately for: * Fever > 100.5 * Heavy vaginal bleeding ( >1 pad per hour) * Severe persistent headache * Shortness of breath * Reddened, hot, painful area to leg or breast * Drainage or odor from incision. * Keep incision clean and dry at all times and follow doctor's instructions regarding bathing/showering - Follow up plan Follow up: GILDA AGUILAR MD [Primary Care Provider] - 7 Days
[2020-10-26 16:45] VITALS: BP 112/76
== END 2020-10-26 10:00 | disposition home or self-care (01) | DRG 766 ==
LOC: TRG 01:43 → APU 01:50 → TRG 05:47 → APU 05:48 → OB 08:42
PROVIDERS: ADMIT Obstetrics & Gynecology; ATTEND Obstetrics & Gynecology
PROC: 10D00Z1 Extraction of Products of Conception, Low, Open Approach (ICD-10-PCS; principal; 2020-10-24)
PROC: 0UB70ZZ Excision of Bilateral Fallopian Tubes, Open Approach (ICD-10-PCS; 2020-10-24)
PROC: 3E0234Z Introduction of Serum, Toxoid and Vaccine into Muscle, Percutaneous Approach (ICD-10-PCS; 2020-10-25)
PROC: 3E0134Z Introduction of Serum, Toxoid and Vaccine into Subcutaneous Tissue, Percutaneous Approach (ICD-10-PCS; 2020-10-25)
DX: O99.62 Diseases of the digestive system complicating childbirth (principal); O34.211 Maternal care for low transverse scar from previous cesarean delivery; O62.2 Other uterine inertia; K21.9 Gastro-esophageal reflux disease without esophagitis; Z3A.38 38 weeks gestation of pregnancy; Z20.822 Contact with and (suspected) exposure to COVID-19; Z37.0 Single live birth; Z30.2 Encounter for sterilization; Z80.9 Family history of malignant neoplasm, unspecified; Z23 Encounter for immunization
CPT/HCPCS: 36415; 85014; 85018; 85027; 86592; 86850; 86900; 86901; 88302; 90471; 99211; G0378; A6250; G0463; J0690; J1100; J1885; J2210; J2405; J2765; J3490; J7120; J7121; U0003